=== PATIENT | female | born 1950 | race Two or more races ===

== ENCOUNTER 2022-09-12 07:58 | Outpatient (CLI) | payer OTHER | END 2022-09-12 08:01 | disposition home or self-care (01) | LOC: SONOGRAMA 07:58 | PROVIDERS: ATTEND Pathology Anatomic Pathology & Clinical Pathology | DX: E04.2 Nontoxic multinodular goiter (principal); D34 Benign neoplasm of thyroid gland; E04.1 Nontoxic single thyroid nodule ==

== ENCOUNTER 2025-04-21 07:17 | Outpatient (CLI) | payer OTHER | END 2025-04-21 07:24 | disposition home or self-care (01) | LOC: SONOGRAMA 07:17 | PROVIDERS: ATTEND Pathology Anatomic Pathology & Clinical Pathology | DX: D34 Benign neoplasm of thyroid gland (principal); E04.2 Nontoxic multinodular goiter ==